=== PATIENT | male | born 1980 | race Caucasian/White ===

== ENCOUNTER 2020-10-29 08:30 | Outpatient (REF) | payer OTHER, SELFPAY ==
[2020-10-29 09:21] LABS: MANUAL DIFF FLAG NO
[2020-10-29 09:29] LABS: Basophils Percent Auto 0.7 % (0-2); Eosinophils Absolute Auto 0.5 X10*3/uL (0.0-0.4); Eosinophils Percent Auto 9.8 % (0-4); Hematocrit 39.1 % (42-52); Hemoglobin 12.9 g/dl (14.0-18.0); Imm Gran Abs Auto 0.01 X10*3/uL (0.00-0.03); Imm Gran Pct Auto 0.2 % (0.0-0.4); Lymphocytes Absolute Auto 1.1 X10*3/uL (1.2-4.9); Lymphocytes Percent Auto 19.4 % (20-40); Mean Corpuscular Hemoglobin 29.9 pg (27.0-33.0); Mean Corpuscular Volume 90.7 fL (80-98); Mean Platelet Volume 10.9 fL (9.4-12.4); Monocytes Absolute Auto 0.6 X10*3/uL (0.1-1.2); Monocytes Percent Auto 11.1 % (2-11); Neutrophils Absolute Auto 3.3 X10*3/uL (2.0-8.3); Neutrophils Percent Auto 58.8 % (45-73); Platelet Count 238 X10*3/uL (160-400); Red Blood Count 4.31 X10*6/uL (4.60-5.80); Red Cell Distribution Width 13.2 % (11.0-16.0); White Blood Count 5.5 X10*3/uL (4.8-10.8)
[2020-10-29 09:49] LABS: Alanine Aminotransferase 19 U/L (0-40); Albumin Level 4.5 g/dL (3.5-5.0); Alkaline Phosphatase 55 U/L (39-117); Anion Gap 13 (12-20); Aspartate Amino Transferase 18 U/L (5-37); Bilirubin Total 0.7 mg/dL (0.0-1.0); Blood Urea Nitrogen 17 mg/dL (9-16); Carbon Dioxide 30 mmol/L (22-29); Chloride 102 mmol/L (96-108); Cholesterol 202 mg/dL; Estimated Glomerular Filt Rate > 60; Glucose Random 110 mg/dL (60-115); HDL Cholesterol 66 mg/dL; LDL Cholesterol Calculated 118 mg/dl; Potassium 4.9 mmol/L (3.3-5.1); Sodium 140 mmol/L (135-145); Total Protein 7.1 g/dL (6.5-8.0); Triglycerides 93 mg/dL
== END 2020-10-29 08:31 | disposition home or self-care (01) ==
LOC: HO.LAB 08:30
PROVIDERS: PCP Internal Medicine Medical Oncology; Visit Provider Internal Medicine Medical Oncology
DX: Z00.00 Encounter for general adult medical examination without abnormal findings (principal); E78.5 Hyperlipidemia, unspecified
CPT/HCPCS: 36415; 80053; 80061; 85025

== ENCOUNTER 2022-08-11 10:41 | Outpatient (REF) | payer OTHER, SELFPAY ==
[2022-08-11 13:28] LABS: MANUAL DIFF FLAG NO
[2022-08-11 13:33] LABS: Basophils Percent Auto 0.6 % (0-2); Eosinophils Absolute Auto 0.2 X10*3/uL (0.0-0.4); Eosinophils Percent Auto 3.7 % (0-4); Hematocrit 41.8 % (42.0-52.0); Hemoglobin 13.7 g/dl (14.0-18.0); Imm Gran Abs Auto 0.02 X10*3/uL (0.00-0.03); Imm Gran Pct Auto 0.4 % (0.0-0.4); Lymphocytes Absolute Auto 1.2 X10*3/uL (1.2-4.9); Lymphocytes Percent Auto 23.9 % (20-40); Mean Corpuscular HGB Conc 32.8 g/dl (31.0-36.0); Mean Corpuscular Hemoglobin 29.6 pg (27.0-33.0); Mean Corpuscular Volume 90.3 fL (80.0-98.0); Mean Platelet Volume 11.1 fL (9.4-12.4); Monocytes Absolute Auto 0.7 X10*3/uL (0.1-1.2); Monocytes Percent Auto 13.3 % (2-11); Neutrophils Absolute Auto 2.9 x10*3/uL (2.0-8.3); Neutrophils Percent Auto 58.1 % (45-73); Platelet Count 265 X10*3/uL (160-400); Red Blood Count 4.63 X10*6/uL (4.60-5.80); Red Cell Distribution Width 13.1 % (11.0-16.0); White Blood Count 4.9 X10*3/uL (4.8-10.8)
[2022-08-11 13:53] LABS: Alanine Aminotransferase 22 U/L (0-40); Albumin Level 4.2 g/dL (3.5-5.0); Alkaline Phosphatase 39 U/L (39-117); Anion Gap 11 (12-20); Aspartate Amino Transferase 20 U/L (5-37); Bilirubin Total 0.8 mg/dL (0.0-1.0); Blood Urea Nitrogen 17 mg/dL (9-16); Carbon Dioxide 30 mmol/L (22-29); Chloride 102 mmol/L (96-108); Cholesterol 169 mg/dL; Estimated Glomerular Filt Rate > 60; Glucose Fasting 92 mg/dL (60-99); HDL Cholesterol 50 mg/dL; LDL Cholesterol Calculated 106 mg/dl; Potassium 4.6 mmol/L (3.3-5.1); Sodium 138 mmol/L (135-145); Total Protein 6.7 g/dL (6.5-8.0); Triglycerides 68 mg/dL
[2022-08-11 14:10] LABS: Prostate Specific Antigen 0.51 ng/mL (<0.05-4.0)
== END 2022-08-11 10:42 | disposition home or self-care (01) ==
LOC: HO.10HDL 10:41
PROVIDERS: Visit Provider Internal Medicine Medical Oncology
DX: Z00.00 Encounter for general adult medical examination without abnormal findings (principal); E78.5 Hyperlipidemia, unspecified; E66.3 Overweight; R35.1 Nocturia; Z12.5 Encounter for screening for malignant neoplasm of prostate
CPT/HCPCS: 36415; 80053; 80061; 84153; 85025

== ENCOUNTER 2023-12-18 07:53 | Outpatient (REF) | payer OTHER, SELFPAY ==
[2023-12-18 10:56] LABS: MANUAL DIFF FLAG NO
[2023-12-18 11:12] LABS: Basophils Percent Auto 0.8 % (0-2); Eosinophils Absolute Auto 0.2 X10*3/uL (0.0-0.4); Eosinophils Percent Auto 4.5 % (0-4); Hematocrit 44.9 % (42.0-52.0); Hemoglobin 15.5 g/dl (14.0-18.0); Imm Gran Abs Auto 0.01 X10*3/uL (0.00-0.03); Imm Gran Pct Auto 0.2 % (0.0-0.4); Lymphocytes Absolute Auto 1.1 X10*3/uL (1.2-4.9); Lymphocytes Percent Auto 22.5 % (20-40); Mean Corpuscular HGB Conc 34.5 g/dl (31.0-36.0); Mean Corpuscular Hemoglobin 30.7 pg (27.0-33.0); Mean Corpuscular Volume 88.9 fL (80.0-98.0); Monocytes Absolute Auto 0.8 X10*3/uL (0.1-1.2); Monocytes Percent Auto 15.6 % (2-11); Neutrophils Absolute Auto 2.8 x10*3/uL (2.0-8.3); Neutrophils Percent Auto 56.4 % (45-73); Platelet Count 252 X10*3/uL (160-400); Red Blood Count 5.05 X10*6/uL (4.60-5.80); Red Cell Distribution Width 12.4 % (11.0-16.0); White Blood Count 4.9 X10*3/uL (4.8-10.8)
[2023-12-18 11:24] LABS: Alanine Aminotransferase 21 U/L (0-40); Albumin Level 4.6 g/dL (3.5-5.0); Alkaline Phosphatase 34 U/L (39-117); Anion Gap 14 (12-20); Aspartate Amino Transferase 22 U/L (5-37); Bilirubin Total 0.9 mg/dL (0.0-1.0); Blood Urea Nitrogen 15 mg/dL (9-16); Calcium 9.4 mg/dL (8.4-10.2); Carbon Dioxide 29 mmol/L (22-29); Chloride 100 mmol/L (96-108); Cholesterol 188 mg/dL (<200); Estimated Glomerular Filt Rate > 60; Glucose Fasting 90 mg/dL (60-99); HDL Cholesterol 64 mg/dL (>40); LDL Cholesterol Calculated 111 mg/dL (<100); Potassium 4.5 mmol/L (3.3-5.1); Sodium 138 mmol/L (135-145); Total Protein 7.5 g/dL (6.5-8.0); Triglycerides 66 mg/dL (<150)
[2023-12-18 11:49] LABS: Prostate Specific Antigen 0.58 ng/mL (<0.05-4.0)
== END 2023-12-18 07:54 | disposition home or self-care (01) ==
LOC: HO.10HDL 07:53
PROVIDERS: Visit Provider Internal Medicine Medical Oncology
DX: Z00.00 Encounter for general adult medical examination without abnormal findings (principal); E78.5 Hyperlipidemia, unspecified; N40.0 Benign prostatic hyperplasia without lower urinary tract symptoms; Z12.5 Encounter for screening for malignant neoplasm of prostate
CPT/HCPCS: 36415; 80053; 80061; 84153; 85025

== ENCOUNTER 2024-12-22 07:30 | Outpatient (REF) | payer BC, SELFPAY ==
--- OUTSIDE RECORDS SUMMARY | 2024-12-22 07:32 | XMS_ITS ---
Author Organization [facility] Address [address] [facility] [address] [place] [phone] Care Team Providers Care Soap Boiler Name Role Phone Cornelio KIRBY, Bernabe Primary Care Provider Unavailab alondra Roldan Jr, Lukas Ricketts [phone] REASON FOR VISIT COLONOSCOPY Encounters Encounter Location Date Provider Diagnosis [facility] [address] [facility] [address] [place] [phone] 11/17/2024 Lukas Roldan Jr Plan Of Treatment Next Appt Details Provider Name:Lukas valderrama Jr, 02/27/2025 01:15:00 PM, [address] [facility], [address], [place], [address], Progress Notes * MARIELA VILLANUEVAOB:1980 ( 44 yo M)Acc No.[id number]:11/17/2024 Progress Notes Patient:?CHRISTEN VILLANUEVA Provider:?Lukas Roldan MD :1980???Age:44 Y???Sex:Male Dmitry e:11/17/2024 Address:[address] [place], [place] [id number] Pcp:Bernabe Grimes MD Subjective: * Chief Complaints: * ???1. COLONOSCOPY. * Medical History:? Objective: * Vitals:? Assessment: Plan: * Treatment: * * The named appointment provid er may or may not be the originator of this progress note, and it is not deemed complete until electronically signed by the appointment provider. Sign off status: Pending * Provider:?Lukas Roldan MD Date:?0 11/17/2024 Generated for Printi ng/Faxing/eTransmitting on:?12/22/2024 07:32 AM EDT
--- OUTSIDE RECORDS SUMMARY | 2024-12-22 07:32 | XMS_ITS ---
Author Organization Bernabe Grimes III, MD Address [address] [place] [address] [place] [address] Care Team Providers Care String Studies Director Name Role Phone Bernabe Grimes Primary Care Provider Allergies Allergen (clinical drug ingredient) Drug/Non Drug Allergy documented on EMR Reaction Allergy Type Onset Date Status Penicillin Unknown Drug Allergy Active Reason For Referral Reason Evaluate and Treat Screening Colonoscopy Diagnosis 1 Screen for colon can cer (Z12.11) Referral Organization Bernabe Grimes III, MD Referring Provider First Name Bernabe Referring Provider Last Name Cornelio Referring Provider Speciality Internal M edicine Referred Provider Lukas Roldan Referred Provider Specialty Gastroentero logy General Notes Elvira Sierra 07/11/2024 11:57:38 AM > Referral and Progress note faxed.Renetta Suzanne CMA 10/20/2024 04:04:58 PM > called Dr Roldan office pt is over due for screening colonoscopy they will call patient to set up apptRenetta Suzanne PLACEMENT ASSISTANT 10/27/2024 04:19:28 PM > Dr Roldan office called they are seeing pt on 11/17/2024 and need an referral which Elvira has done today Referral Priority Routine Referral Appointment Date 11/17/2024 REASON FOR VISIT Recent emergency room visit for heartburn, Hyperlipidemia, Allergic rhinitis, Benign prostatic hypertrophy Medications Medication SIG (Take, Route, Frequency, Duration) Notes Start Date End Date Status Omeprazole 40 MG 1 capsule Orally Onc e a day for 30 days 07/04/2024 Active Famotidine 20 MG 1 tablet as needed O rally Once a day Active Omeprazole 20 MG 1 capsule 1/2 to 1 h our before morning meal Orally Once a day Active Pantoprazole Sodium 40 MG 1 tablet Orall y Once a day for 30 days 07/04/2024 Active Social History Tobacco Use: Social History Observation Description Date Details (start date - stop date) Former Smoker NA - NA Sex Assigned At : Social History Observation Description Sex Assigned At Male Tobacco Use/Smoking Question Answer Notes Patient is a former smoker How long has it been since you last smoked? > 10 years Additional Findings: Tobacco Non-User Ex-cigaret te smoker Problems Problem Type SNOMED Code ICD Code Onset Dates Problem Status W/U Status Risk Notes Problem 807722019 GERD without esophagitis (K21.9) Active confirmed I have given him a prescription for pantoprazole. He reports the omeprazole is not working. Vital Signs Temperature 97.7 degrees Fahrenheit 07/04/20 24 Blood pressure systolic 140 mm Hg 07/04/20 24 Blood pressure diastolic 85 mm Hg 024 Heart Rate 60 /min 07/04/2024 Height 69 in 07/04/2024 Weight 192 lbs 07/04/2024 BMI 28.35 kg/m2 07/04/2024 Encounters Encounter Location Date Provider Diagnosis Bernabe Grimes III, MD [address] [place] [address] [place] [address] 07/04/2024 Bernabe Grimes GERD without esophag itis K21.9 ; Hyperlipidemia, unspecified hyperlipidemia type E78.5 ; Former smoker Z87.891 ; Overweight E66.3 and Social phobia F40.10 Assessments Encounter Date Diagnosis (ICD Code) Assessment Notes Treat ment Notes Treatment Clinical Notes 07/04/2024 GERD without esophagitis (ICD-10 - K21.9) He was recently seen in a local emergency room for chest pain which was diagnosed as GERD. He was on 20 mg of omeprazole daily and was placed on 40. This has not helped. I have prescribed him to result 40 mg once a day. He will also use a liquid antacid. 07/04/2024 Hyperlipidemia, unspecified hyperlipidemia type (ICD-10 - E78.5) Comprehensive blood work with a fasting lipid profile has been ordered. 07/04/2024 Former smoker (ICD-10 - Z87.891) We have discussed a plan to prevent relapse in times of stress and illness. He is entirely motivated not to smoke. 07/04/2024 Overweight (ICD-10 - E66.3) His body mass index is 29. However, the excess weight is due to highly developed muscles. His body that is quite low. The body mass index is a result of body building and does not represent a risk factor for cardiovascular disease. 07/04/2024 Social phobia (ICD-10 - F40.10) This has been a minor problem for him lately. Plan Of Treatment Medication Medication Name Sig Start Date Stop Date Notes Omeprazole 40 MG 1 capsule Orally Onc e a day for 30 days 07/04/2024 Famotidine 20 MG 1 tablet as needed O rally Once a day Omeprazole 20 MG 1 capsule 1/2 to 1 h our before morning meal Orally Once a day Pantoprazole Sodium 40 MG 1 tablet Orall y Once a day for 30 days 07/04/2024 Referrals Referral Date Details 07/04/2024 07/04/2024, Evaluate and Treat Screening Colonoscopy, Lukas Roldan Next Appt Details Follow Up: 2 Months, , Reason: OV, Follow-up on the patient's condition and colonoscopy Provider Name:Bernabe Grimes, 12/20/2025 03:30:00 PM, [address] [place] [address] [address] [place] [address], [phone], Progress Notes * dAiel BROOKEDarianOB:1980 ( 43 yo M)Acc No.[id number]:07/04/2024 Progress Notes Patient:?Michael BROOKE Provider:?Bernabe Grimes MD :1980???Age:43 Y???Sex:Male Dmitry e:07/04/2024 Address:[address] [place], [place] [phone] Subjective: * Chief Complaints: * ???Recent emergency room vis it for heartburnHyperlipidemiaAllergic rhinitisBenign prostatic hypertrophy * HPI: ???COVID-19 Screening:?Questions?Have you experienced fever, chills, cough, sore throat, shortness of breath, difficulty breathing, muscle aches, loss of taste or smell??No ?Have you been exposed to the virus within the last 10 days??No ?Have you travelled internationally in the last 10 days??No ?Have you been exposed to COVID-19 in the past??No ???:? The patient, a 43-year-old male, presented with a history of chest pain and tightness. The symptoms began around June 29 and were not constant but occurred after eating and when the patient was sitting. The pain was described as tight and was severe enough to cause the patient to visit the emergency room. The location of the pain was in the chest. The patient reported that the pain did not occur if he went for a walk after eating. The patient also reported weight loss due to fear of eating. The patient was previously diagnosed with GERD, acid reflux, or esophageal hernia at the emergency room. The patient also reported numbness in his fingers. * ROS:?General/Constitutional:?Admits?pain,?Heartburn.?Chills?denies.?Fatigue?admits.?Fever?denies.?Admit s?Weight loss.?ENT:?Decreased hearing?denies.?Respiratory:?Cough?denies.?Cardiovascular:?Chest pain with exertion?denies.?Dyspnea on exertion?denies.?Shortness of breath?denies.?Gastrointestinal:?Constipation?occasional.?Decreased appetite?denies.?Diarrhea?denies.?Heartburn?denies.?Nausea?denies.?Rectal bleeding?denies.?Vomiting?denies.?Hematology:?bruising?denies.?petechiae?denies.?Swollen glands?none have been noted.?Genitourinary:?Frequent urination?once a night.?Musculoskeletal:?Muscle aches?denies.?Painful joints?denies.?Sciatica?denies.?Weakness?denies.?Skin:?Itching?denies.?Rash?denies.?Skin lesion(s)?denies.?Neurologic:?Difficulty speaking?denies.?Dizziness?denies.?Headache?denies.?Low back pain?denies.?Psychiatric:?Depressed mood?denies.? * Medical History:? * Surgical History:?dental ext ractions, 4 wisdom teeth removed No history * Hospitalization/Major Diagno stic Procedure:?No history * Family History:?Father: dece ased 73 yrs, Bladder cancer, hypertension, coronary artery disease, diagnosed with Cancer, Hyperlipidemia.?Mother: alive 64 yrs, Arthritis, total knee replacement.?1 sister(s) - healthy. 1 son(s) , 1 daughter(s) . .? His father from metastatic bladder cancer. His sister, Claritza, is healthy and well with scoliosis. His 2 children are healthy and well. He is not aware of any history of hereditary cancer, breast cancer or uterine cancer. Daughter Dx. AIP. * Social History:?Tobacco Use:?Tobacco Use/Smoking?Patient is a?former smoker ?How long has it been since you last smoked??> 10 years ?Additional Findings: Tobacco Non-User?Ex-cigarette smoker ???He has been to Danii for 5 years. They have a son and a daughter who are healthy. He was born and [place], [place]. 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 He has some exposures to flannel 1. We'll and chemicals. * Medications:?TakingFamotidin e 20 MG Tablet 1 tablet as needed Orally Once a day Omeprazole 20 MG Capsule Delayed Release 1 capsule 1/2 to 1 hour before morning meal Orally Once a day Medication List reviewed and reconciled with the patientTaking Famotidine 20 MG Tablet 1 tablet as needed Orally Once a day Taking Omeprazole 20 MG Capsule Delayed Release 1 capsule 1/2 to 1 hour before morning meal Orally Once a day Medication List reviewed and reconciled with the patient * Allergies:?Penicillinno[Jameel rgies Verified] Objective: * Vitals:?Ht: 69, Wt: 192, BMI :28.35, BP: 140/85, HR: 60, Temp: 97.7, Wt-k.09. * Examination: ???General Examination: ?GENERAL APPEARANCE:?pleasant, well nourished, well developed, in no acute distress, calm and relaxed, overweight, man.?HEAD:?atraumatic, normocephalic.?EYES:?eomi, perrla, anicteric, conjugate.?EARS:?normal.?NOSE:?septum intact.?ORAL CAVITY:?normal, unremarkable.?NECK/THYROID:?no jugular venous distention, no carotid bruit, thyroid normal.?LYMPH NODES:?no enlarged lymph nodes,spleen normal.?SKIN:?no suspicious lesions, anicteric.?HEART:?no clicks, gallops, murmurs, or rubs, regular rhythm, S1, S2 normal, no s3, or vascular bruits.?LUNGS:?clear to auscultation .?BREASTS:??no masses palpable bilaterally.?ABDOMEN:?bowel sounds normal, no ascites, no organomegaly, no mass.?RECTAL EXAM:?not examined.?MUSCULOSKELETAL:?extremities unremarkable, no clubbing, cyanosis or edema.?PERIPHERAL PULSES:?normal.?NEUROLOGIC:?alert and oriented, cranial nerves 2-12 grossly intact, deep tendon reflexes 2+ symmetrical, motor strength normal upper and lower extremities, sensory exam intact.?PSYCH:?alert, oriented.? Assessment: * Assessment: 1.?GERD without esophagitis - K21.9 (Primary)???Notes :He was recently seen in a local emergency room for chest pain which was diagnosed as GERD.? He was on 20 mg of omeprazole daily and was placed on 40.? This has not helped.? I have prescribed him to result 40 mg once a day.? He will also use a liquid antacid.???2.?Hyperlipidemia, unspecified hyperlipidemia type - E78.5???Notes :Comprehensive blood work with a fasting lipid profile has been ordered.???3.?Former smoker - Z87.891???Notes :We have discussed a plan to prevent relapse in times of stress and illness. He is entirely motivated not to smoke.???4.?Overweight - E66.3???Notes :His body mass index is 29. However, the excess weight is due to highly developed muscles. His body that is quite low. The body mass index is a result of body building and does not represent a risk factor for cardiovascular disease.???5.?Social phobia - F40.10???Notes :This has been a minor problem for him lately.??? Plan: * Treatment: 2.?Others? Start Omeprazole Capsule Delayed Release, 40 MG, 1 capsule, Orally, Once a day, 30 days, 30 Capsule, Refills 3, Notes: received notice from pharmacy medication not covered;?Start Pantoprazole Sodium Tablet Delayed Release, 40 MG, 1 tablet, Orally, Once a day, 30 days, 30 Tablet, Refills 5, Notes: received notice from pharmacy medication not covered.? Referral To:Lukas Roldan??Gastroenterology ?Reason:Evaluate and Treat Screening Colonoscopy * Procedure Codes:? * Preventive Medicine:? ??Counseling:?Care goal follow-up plan:?Counseling for abnormal BMI given?Yes ?Above Normal BMI Follow-up?Dietary management education, guidance, and counseling, Dietary needs education, Exercise promotion: strength training, Exercise promotion: stretching, Feeding regime, Giving encouragement to exercise, Lifestyle education regarding diet, Nutrition / feeding management, Nutrition therapy, Prescribed activity/exercise education, Prescribed diet education, Prescribed dietary intake, Special diet education, Weight monitoring , Intervention, Order not done: Medical or Other reason not done ?Smoking/Tobacco Use?Patient counseled on the dangers of tobacco use and urged to quit.?07/04/2024 * Follow Up:?2 Months, Februar y (Reason: OV, Follow-up on the patient's condition and colonoscopy) * Images: * Sign off status: Completed true * Provider:?Bernabe Grimes MD Date:?09/2023 Generated for Printi ng/Radha/eTransmitting on:?12/22/2024 07:32 AM EDT History and Physical Notes * HPI (History of Present Illness) Category Sub-Category Detail Notes COVID-19 Screening Questions Have you had any new onset fever, chills, cough, congestion, sore throat, shortness of breath, muscle aches?: No Have you been exposed to the virus withi n the last 10 days?: No Have you travelled internationally in e last 10 days?: No Have you been exposed to COVID-19 in the past?: No Examination Category Sub-Category Detail Notes General Examination GENERAL APPEARANCE: pleasant , well nourished, well developed, in no acute distress, calm and relaxed, overweight, man HEAD: atraumatic, normocep halic EYES: eomi, perrla, anicte cy, conjugate EARS: normal NOSE: septum intact NECK/THYROID: no jugular venous di stention, no carotid bruit, thyroid normal HEART: no clicks, gallops, murmurs, or rubs, regular rhythm, S1, S2 normal, no s3, or vascular bruits LUNGS: clear to auscultatio n ABDOMEN: bowel sounds normal, no ascites, no organomegaly, no mass NEUROLOGIC: alert and oriented, cranial nerves 2-12 grossly intact, deep tendon reflexes 2+ symmetrical, motor strength normal upper and lower extremities, sensory exam intact SKIN: no suspicious lesion s, anicteric PERIPHERAL PULSES: normal BREASTS: no masses palpable b ilaterally MUSCULOSKELETAL: extremities unremark able, no clubbing, cyanosis or edema LYMPH NODES: no enlarged lymph no ayaan,spleen normal RECTAL EXAM: not examined PSYCH: alert, oriented ORAL CAVITY: normal, unremarkable Consultation Request Notes Referral Date Referring Provider Referred Provider Not es 07/04/2024 Bernabe Grimes Bernard Evaluate and Treat Screening Colonoscopy
--- OUTSIDE RECORDS SUMMARY | 2024-12-22 07:33 | XMS_ITS | Patient Health Record ---
Author Organization Bernabe Grimes III, MD Address [address] [place] [address] [place] [address] Care Team Providers Care Windows Systems Admin Name Role Phone Bernabe Grimes Primary Care [...] > Referral and Progress note faxed.Renetta Suzanne CLOTH BLEACHING RANGE TENDER 10/20/2024 04:04:58 PM > called Dr Roldan office pt is over due for screening colonoscopy they will call patient to set up apptRenetta Suzanne [facility] 10/27/2024 04:19:28 PM > Dr Roldan office called they are seeing pt on 11/17/2024 and need an referral which Elvira has done today Referral Priority Routine Referral Appointment Date 11/17/2024 Medications Medication SIG (Take, Route, Frequency, Duration) Notes Start Date End Date Status Famotidine 20 MG 1 tablet as needed O rally Once a day Active Omeprazole 40 MG 1 capsule Orally Onc e a day 07/04/2024 Active Pantoprazole Sodium 40 MG 1 tablet Orally Once a day 07/04/2024 Active Pantoprazole Sodium 40 MG 1 tablet Orall y Once a day for 30 days 12/19/2024 Active Social History Tobacco Use: Social History Observation Description Date Details (start date - stop date) Former Smoker NA - NA Sex Assigned At : Social History Observation Description Sex Assigned At Male Tobacco Use/Smoking Question Answer Notes Patient is a former smoker How long has it been since you last smoked? > 10 years Additional Findings: Tobacco Non-User Ex-cigaret te smoker Alcohol Screen Question Answer Notes Did you have a drink contain ing alcohol in the past year? Yes How often did you have a dri nk containing alcohol in the past year? 2 to 3 times a week (3 points) How many drinks did you have on a typical day when you were drinking in the past year? 3 or 4 drinks (1 point) How often did you have 6 or more drinks on one occasion in the past year? Never (0 point) Points 4 Interpretation Positive Problems Problem Type SNOMED Code ICD Code Onset Dates Problem Status W/U Status Risk Notes Problem 9308006 Former smoker (Z87.891) Active confirmed We have discussed a plan to prevent relapse in times of stress and illness. He is entirely motivated not to smoke. Problem 270309216 Overweight (E66.3) Active confirmed His body mass index is 29. However, the excess weight is due to highly developed muscles. His body that is quite low. The body mass index is a result of body building and does not represent a risk factor for cardiovascular disease. Problem 749294248 GERD without esophagitis (K21.9) Active confirmed I have given him a prescription for pantoprazole. He reports the omeprazole is not working. Problem Benign prostatic hyperplasia (632841063) BPH (benign prostatic hyperplasia) (N40.0) Active confirmed He arises from sleep once a night at most to urinate. He does not restrict fluid. We discussed lifestyle modification as a way of reducing nocturia. Problem 10442042 Penicillin allergy (Z88.0) Active confirmed He is aware of this and has been scrupulous the avoiding penicillins. Problem 25333181 Social phobia (F40.10) Active confirmed This has been a minor problem for him lately. Problem Hyperlipidemia, unspecified hyperlipidemia type (E78.5) Active confirmed Comprehensive blood work with a fasting lipid profile has been ordered. Problem 16164001 Allergic rhinitis, unspecified seasonality, unspecified trigger (J30.9) Active confirmed He is beginn ing to notice this symptom as we get into pollen season. He will use his usual antihistamines. I recommended Flonase. He will call me if he needs additional agents. Vital Signs Heart Rate 69 /min 12/19/2024 Temperature 97.5 degrees Fahrenheit 12/19/2024 Blood pressure diastolic 80 mm Hg 12/19/2024 Height 69 in 12/19/2024 Blood pressure systolic 120 mm Hg 12/19/2024 Weight 201 lbs 12/19/2024 BMI 29.68 kg/m2 12/19/2024 Encounters Encounter Location Date Provider Diagnosis Bernabe Grimes III, MD [address] [place] [address] [place] [address] 12/19/2024 Bernabe Grimes GERD without esophag itis K21.9 ; Former smoker Z87.891 ; Overweight E66.3 ; Social phobia F40.10 ; Allergic rhinitis, unspecified seasonality, unspecified trigger J30.9 and BPH (benign prostatic hyperplasia) N40.0 Bernabe Grimes III, MD [address] [place] [address] [place] [address] 07/04/2024 Bernabe Grimes GERD without esophag itis K21.9 ; Hyperlipidemia, unspecified hyperlipidemia type E78.5 ; Former smoker Z87.891 ; Overweight E66.3 and Social phobia F40.10 Bernabe Grimes III, MD [address] [place] [address] [place] [address] 05/10/2024 Bernabe Grimes III, MD [address] [place] [address] [place] [address] 06/28/2024 Bernabe Grimes Assessments Encounter Date Diagnosis (ICD Code) Assessment Notes Treat ment Notes Treatment Clinical Notes 12/19/2024 Former smoker (ICD-10 - Z87.891) We have discussed a plan to prevent relapse in times of stress and illness. He is entirely motivated not to smoke. 12/19/2024 GERD without esophagitis (ICD-10 - K21.9) I have given him a prescription for pantoprazole. He reports the omeprazole is not working. 07/04/2024 GERD without esophagitis (ICD-10 - K21.9) [...] a fasting lipid profile has been ordered. 12/19/2024 Overweight (ICD-10 - E66.3) His body mass index is 29. However, the excess weight is due to highly developed muscles. His body that is quite low. The body mass index is a result of body building and does not represent a risk factor for cardiovascular disease. 07/04/2024 Former smoker (ICD-10 - Z87.891) We have discussed a plan to prevent relapse in times of stress and illness. He is entirely motivated not to smoke. 12/19/2024 Social phobia (ICD-10 - F40.10) This has been a minor problem for him lately. 07/04/2024 Overweight (ICD-10 - E66.3) His body mass index is 29. However, the excess weight is due to highly developed muscles. His body that is quite low. The body mass index is a result of body building and does not represent a risk factor for cardiovascular disease. 12/19/2024 Allergic rhinitis, unspecified seasonality, unspecified trigger (ICD-10 - J30.9) He is beginning to notice this symptom as we get into pollen season. He will use his usual antihistamines. I recommended Flonase. He will call me if he needs additional agents. 07/04/2024 Social phobia (ICD-10 - F40.10) This has been a minor problem for him lately. 12/19/2024 BPH (benign prostatic hyperplasia) (ICD-10 - N40.0) He arises from sleep once a night at most to urinate. He does not restrict fluid. We discussed lifestyle modification as a way of reducing nocturia. Plan Of Treatment Pending Test Test Name Order Date PROFILE, FASTING (COMPREHENSIVE METABOLI C) 12/19/2024 PROFILE, FASTING (COMPREHENSIVE METABOLI C) 2019 PROFILE, FASTING (COMPREHENSIVE METABOLI C) 06/21/2018 LIPID PANEL 2019 LIPID PANEL 06/21/2018 PSA, TOTAL 06/21/2018 PSA, TOTAL 12/19/2024 PSA, TOTAL 2019 CBC w DIFF 2019 CBC w DIFF 06/21/2018 CBC w DIFF 12/19/2024 URINALYSIS (UA) 06/21/2018 Lipid Panel 12/19/2024 Next Appt Details Provider Name:Bernabe Grimes, 12/20/2025 03:30:00 PM, [address] [place] [address], [facility] [address], [place], [address], Insurance Providers Payer Name Payer Address Payer Phone Subscriber Number Group Number Insured Name Patient Relationship to Insured Coverage Start Date Coverage End Date [facility] [address] [place], [place] [id number] Michael Brooke Self - patient is the insured Medical (General) History Medical History History ICD Code Social phobia F40.10 Allergic rhinitis, unspecified seasonali ty, unspecified trigger J30.9 overweight, BMI 29 Allergic to penicillin, rash history of dental extractions former smoker 2014 Suboxone recipient GERD Surgical History Surgery Date(Month/Year) No history dental extractions, 4 wisdom teeth remov ed Hospitalization History Reason Date(Month/Year) No history
--- OUTSIDE RECORDS SUMMARY | 2024-12-22 07:33 | XMS_ITS ---
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 Phone Bernabe Grimes Primary Care Provider Allergies Allergen (clinical drug ingredient) Drug/Non Drug Allergy documented on EMR Reaction Allergy Type Onset Date Status Penicillin Unknown Drug Allergy Active REASON FOR VISIT annual exam Medications Medication SIG (Take, Route, Frequency, Duration) [...] Additional Findings: Tobacco Non-User Ex-cigaret te smoker Vital Signs Temperature 97.5 degrees Fahrenheit 12/20/19 25 Blood pressure systolic 120 mm Hg 12/20/19 25 Blood pressure diastolic 80 mm Hg 025 Heart Rate 69 /min 12/19/2024 Height 69 in 12/19/2024 Weight 201 lbs 12/19/2024 BMI 29.68 kg/m2 12/19/2024 Encounters Encounter Location Date Provider Diagnosis Bernabe Grimes III, MD [address] [place] [address] [place] [address] 12/19/2024 Bernabe Grimes GERD without esophagitis K21.9 ; Former smoker Z87.891 ; Overweight E66.3 ; Social phobia F40.10 ; Allergic rhinitis, unspecified seasonality, unspecified trigger J30.9 and BPH (benign prostatic hyperplasia) N40.0 Assessments Encounter Date Diagnosis (ICD Code) Assessment Notes Treatment Notes Treatment Clinical Notes 12/19/2024 GERD without esophagitis (ICD-10 - K21.9) I have given him a prescription for pantoprazole. He reports the omeprazole is not working. 12/19/2024 Former smoker (ICD-10 - Z87.891) We have discussed a plan to prevent relapse in times of stress and illness. He is entirely motivated not to smoke. 12/19/2024 Overweight (ICD-10 - E66.3) His body mass index is 29. However, the excess weight is due to highly developed muscles. His body that is quite low. The body mass index is a result of body building and does not represent a risk factor for cardiovascular disease. 12/19/2024 Social phobia (ICD-10 - F40.10) This has been a minor problem for him lately. 12/19/2024 Allergic rhinitis, unspecified seasonality, unspecified trigger (ICD-10 - J30.9) He is beginning to notice this symptom as we get into pollen season. He will use his usual antihistamines. I recommended Flonase. He will call me if he needs additional agents. 12/19/2024 BPH (benign prostatic hyperplasia) (ICD-10 - N40.0) He arises from sleep once a night at most to urinate. He does not restrict fluid. We discussed lifestyle modification as a way of reducing nocturia. Plan Of Treatment Medication Medication Name Sig Start Date Stop Date Notes Famotidine 20 MG 1 tablet as needed O rally Once a day Omeprazole 40 MG 1 capsule Orally Once a day 07/04/2024 Pantoprazole Sodium 40 MG 1 tablet Orally Once a day 07/04 Pantoprazole Sodium 40 MG 1 tablet Orall y Once a day for 30 days 12/19/2024 Pending Test Test Name Order Date PROFILE, FASTING (COMPREHENSIVE METABOLI C) 12/19/2024 PSA, TOTAL 12/19/2024 CBC w DIFF 12/19/2024 Lipid Panel 12/19/2024 Next Appt Details Follow Up: 1 Year, Reason: A nnual Exam Provider Name:Bernabe Grimes, 12/20/2025 03:30:00 PM, [address] [place] [address] [address], [place], [address], Progress Notes * Wilber BROOKEOB:1980 ( 44 yo M)Acc No.[id number]:12/19/2024 Progress Notes Patient:?Michael BROOKE Provider:?Bernabe Grimes MD :1980???Age:44 Y???Sex:Male Dmitry e:12/19/2024 Address:[address] [place] [id number] Subjective: * Chief Complaints: * ???Annual exam * HPI: ???Depression Screening:?He returns to the office at the age of 44 for his annual physical examination.? He is being followed for hyperlipidemia, allergic rhinitis, GERD and benign prostatic hypertrophy.? He reports that he has only mild symptoms during the current pollen season.? He feels healthy and well.? He denies any chest pain, shortness of breath, palpitations, nausea, vomiting, diarrhea or bleeding.? He arises from sleep once a night to urinate.One concern is that the omeprazole is not preventing his reflux symptoms.? I have given him a prescription for pantoprazole. ?PHQ-9?Little interest or pleasure in doing things?Not at all ?Feeling down, depressed, or hopeless?Not at all ?Trouble falling or staying asleep, or sleeping too much?Not at all ?Feeling tired or having little energy?Not at all ?Poor appetite or overeating?Not at all ?Feeling bad about yourself or that you are a failure, or have let yourself or your family down?Not at all ?Trouble concentrating on things, such as reading the newspaper or watching television?Not at all ?Moving or speaking so slowly that other people could have noticed; or the opposite, being so fidgety or restless that you have been moving around a lot more than usual?Not at all ?Thoughts that you would be better off or of hurting yourself in some way?Not at all ?Total Score?0 ???COVID-19 Screening:?Questions?Have you had any new onset fever, chills, cough, congestion, sore throat, shortness of breath, muscle aches??No ???SDOH Questions:?SDOH Questions?In the past year have you or any family members you live with been unable to get any of the following when it was really needed? Check all that apply:?Decline to answer * ROS:?General/Constitutional:?pain?only normal aches and pains.?Chills?denies.?Fatigue?admits.?Fever?denies.?ENT:?Decreased hearing?denies.?Respiratory:?Cough?denies.?Cardiovascular:?Chest pain with exertion?denies.?Dyspnea on exertion?denies.?Shortness of breath?denies.?Gastrointestinal:?Constipation?occasional.?Decreased appetite?denies.?Diarrhea?denies.?Heartburn?occasional.?Nausea?denies.?Rectal bleeding?denies.?Vomiting?denies.?Hematology:?bruising?denies.?petechiae?denies.?Swollen glands?none have been noted.?Genitourinary:?Frequent urination?once a night.?Musculoskeletal:?Muscle aches?denies.?Painful joints?denies.?Sciatica?denies.?Weakness?denies.?Skin:?Itching?denies.?Rash?denies.?Skin lesion(s)?denies.?Neurologic:?Difficulty speaking?denies.?Dizziness?denies.?Headache?denies.?Low back pain?denies.?Psychiatric:?Depressed mood?denies.? * Medical History:? * Surgical History:?dental ext ractions, 4 wisdom teeth removed No history * Hospitalization/Major Diagno stic Procedure:?No history * Family History:?Father: dece ased 73 yrs, Bladder cancer, hypertension, coronary artery disease, diagnosed with Hyperlipidemia, Cancer.?Mother: alive 64 yrs, Arthritis, total knee replacement.?1 [...] who are healthy. He was born and [place], [place]. 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 He has some exposures to flannel 1. We'll and chemicals. * Medications:?TakingFamotidin e 20 MG Tablet 1 tablet as needed Orally Once a day Omeprazole 40 MG Capsule Delayed Release 1 capsule Orally Once a day , Notes: received notice from pharmacy medication not coveredMedication List reviewed and reconciled with the patientTaking Famotidine 20 MG Tablet 1 tablet as needed Orally Once a day Taking Omeprazole 40 MG Capsule Delayed Release 1 capsule Orally Once a day , Notes: received notice from pharmacy medication not coveredMedication List reviewed and reconciled with the patient * Allergies:?Penicillinno[Jameel rgies Verified] Objective: * Vitals:?Ht: 69, Wt: 201, BMI :29.68, BP: 120/80, HR: 69, Temp: 97.5, Wt-k.17. * Examination: ???General Examination: ?GENERAL APPEARANCE:?pleasant, well nourished, well developed, in no acute distress, calm and relaxed, overweight.?HEAD:?atraumatic, normocephalic.?EYES:?eomi, perrla, anicteric, conjugate.?EARS:?normal.?NOSE:?septum intact.?ORAL CAVITY:?normal, unremarkable.?NECK/THYROID:?no jugular venous distention, no carotid bruit, thyroid normal.?LYMPH NODES:?no enlarged lymph nodes,spleen normal.?SKIN:?no suspicious lesions, anicteric.?HEART:?no clicks, gallops, murmurs, or rubs, regular rhythm, S1, S2 normal, no s3, or vascular bruits.?LUNGS:?clear to auscultation .?BREASTS:??no masses palpable bilaterally.?ABDOMEN:?bowel sounds normal, no ascites, no organomegaly, no mass, overweight.?RECTAL EXAM:?not examined, Colonoscopy in the near future.?MUSCULOSKELETAL:?extremities unremarkable, no clubbing, cyanosis or edema.?PERIPHERAL PULSES:?normal.?NEUROLOGIC:?alert and oriented, cranial nerves 2-12 grossly intact, deep tendon reflexes 2+ symmetrical, motor strength normal upper and lower extremities, sensory exam intact.?PSYCH:?alert, oriented.? Assessment: * Assessment: 1.?GERD without esophagitis - K21.9 (Primary)???Notes :I have given him a prescription for pantoprazole.? He reports the omeprazole is not working.???2.?Former smoker - Z87.891???Notes :We have discussed a plan to prevent relapse in times of stress and illness. He is entirely motivated not to smoke.???3.?Overweight - E66.3???Notes :His body mass index is 29. However, the excess weight is due to highly developed muscles. His body that is quite low. The body mass index is a result of body building and does not represent a risk factor for cardiovascular disease.???4.?Social phobia - F40.10???Notes :This has been a minor problem for him lately.???5.?Allergic rhinitis, unspecified seasonality, unspecified trigger - J30.9???Notes :He is beginning to notice this symptom as we get into pollen season. He will use his usual antihistamines. I recommended Flonase. He will call me if he needs additional agents.???6.?BPH (benign prostatic hyperplasia) - N40.0???Notes :He arises from sleep once a night at most to urinate. He does not restrict fluid. We discussed lifestyle modification as a way of reducing nocturia.??? Plan: * Treatment: 2.?Overweight?LAB: PROFILE, FASTING (COMPREHENSIVE METABOLIC) ?LAB: PSA, TOTAL ?LAB: CBC w DIFF ?LAB: Lipid Panel 3.?BPH (benign prostatic hyp erplasia)?LAB: PROFILE, FASTING (COMPREHENSIVE METABOLIC) ?LAB: PSA, TOTAL ?LAB: CBC w DIFF ?LAB: Lipid Panel 4.?Others? Continue Omeprazole Capsule Delayed Release, 40 MG, 1 capsule, Orally, Once a day, Notes: received notice from pharmacy medication not covered;?Continue Pantoprazole Sodium Tablet Delayed Release, 40 MG, 1 tablet, Orally, Once a day, Notes: received notice from pharmacy medication not covered.?? * Procedure Codes:? * Preventive Medicine:? ??Counseling:?Care goal follow-up plan:?Counseling for abnormal BMI given?Yes ?Above Normal BMI Follow-up?Dietary management education, guidance, and counseling ?Smoking/Tobacco Use?Patient counseled on the dangers of tobacco use and urged to quit.?12/19/2024 * Follow Up:?1 Year (Reason: A nnual Exam) * Images: * Sign off status: Completed true * Provider:?Bernabe Grimes MD Date:?12/01 Generated for Lucero arrington/Radha/eTransmitting on:?12/22/2024 07:33 AM EDT History and Physical Notes * HPI (History of Present Illness) Category Sub-Category Detail Notes Depression Screening PHQ-9 Little inte rest or pleasure in doing things: Not at all Feeling down, depressed, or hopeless: No t at all Trouble falling or staying asleep, or sl eeping too much: Not at all Feeling tired or having little energy: N ot at all Poor appetite or overeating: Not at all Feeling bad about yourself o r that you are a failure, or have let yourself or your family down: Not at all Trouble concentrating on thi ngs, such as reading the newspaper or watching television: Not at all Moving or speaking so slowly that other people could have noticed; or the opposite, being so fidgety or restless that you have been moving around a lot more than usual: Not at all Thoughts that you would be b ashu off or of hurting yourself in some way: Not at all Total Score: 0 COVID-19 Screening Questions Have you had any new onset fever, chills, cough, congestion, sore throat, shortness of breath, muscle aches?: No SDOH Questions SDOH Questions In the past year have you or any family members you live with been unable to get any of the following when it was really needed? Check all that apply:: Decline to answer Examination Category Sub-Category Detail Notes General Examination GENERAL APPEARANCE: pleasant , well nourished, well developed, in no acute distress, calm and relaxed, overweight HEAD: atraumatic, normocep halic EYES: eomi, perrla, anicte cy, conjugate EARS: normal NOSE: septum intact NECK/THYROID: no jugular venous di stention, no carotid bruit, thyroid normal HEART: no clicks, gallops, murmurs, or rubs, regular rhythm, S1, S2 normal, no s3, or vascular bruits LUNGS: clear to auscultatio n ABDOMEN: bowel sounds normal, no ascites, no organomegaly, no mass, overweight NEUROLOGIC: alert and oriented, cranial nerves 2-12 grossly intact, deep tendon reflexes 2+ symmetrical, motor strength normal upper and lower extremities, sensory exam intact SKIN: no suspicious lesion s, anicteric PERIPHERAL PULSES: normal BREASTS: no masses palpable b ilaterally MUSCULOSKELETAL: extremities unremark able, no clubbing, cyanosis or edema LYMPH NODES: no enlarged lymph no ayaan,spleen normal RECTAL EXAM: not examined, Colono scopy in the near future PSYCH: alert, oriented ORAL CAVITY: normal, unremarkable
--- OUTSIDE RECORDS SUMMARY | 2024-12-22 07:33 | XMS_ITS | Patient Health Record ---
Author Organization [facility] Address [address] [place] [address] Care Team Providers Care Data Warehousing Manager Name Role Phone Bernabe Grimes MD Primary Care Provider Lukas Chan Jr Unavailable Reason For Referral Referring Provider First Name Bernabe Referring Provider Last Name Cornelio Referring Provider Speciality Oncology Referred Organization [facility] Referred Provider Lukas Roldan Jr Referred Address [address] [place] [address], [address],[place], [place],[address], Referred Provider Specialty Gastroentero logy Referral Priority Routine Plan Of Treatment Next Appt Details Provider Name:Lukas valderrama Jr, 02/27/2025 01:15:00 PM, [address] [place] [address], [address], [place], [address], Insurance Providers Payer Name Payer Address Payer Phone Subscriber Number Group Number Insured Name Patient Relationship to Insured Coverage Start Date Coverage End Date [facility] [employer] CLAIM[employer] [address] [place] [address] [id number] CHRISTEN VILLANUEVA Self - patient is the insured
--- OUTSIDE RECORDS SUMMARY | 2024-12-22 07:33 | XMS_ITS ---
Author Organization Bernabe Grimes III, MD Address [address] [place] [address] [address] [place] [place] [address] Care Team Providers Care Bi Lead Name Role Phone Bernabe Grimes Primary Care Provider [phone] Allergies Allergen (clinical drug ingredient) Drug/Non Drug Allergy documented on EMR Reaction Allergy Type Onset Date Status Penicillin Unknown Drug Allergy Active REASON FOR VISIT Follow up Medications Medication SIG (Take, Route, Frequency, Duration) Notes Start Date End Date Status Famotidine 20 MG 1 tablet as needed O rally Once a day Active Omeprazole 40 MG 1 capsule Orally Onc e a day 07/04/2024 Active Pantoprazole Sodium 40 MG 1 tablet Orally Once a day 07/04/2024 Active Social History Tobacco Use: Social History Observation Description Date Details (start date - stop date) Former Smoker NA - NA Sex Assigned At : Social History Observation Description Sex Assigned At Male Tobacco Use/Smoking Question Answer Notes Patient is a former smoker How long has it been since you last smoked? > 10 years Additional Findings: Tobacco Non-User Ex-cigaret te smoker Encounters Encounter Location Date Provider Diagnosis Bernabe Grimes III, MD [address] [place] [address] [place] [address] 09/05/2024 Bernabe Grimes GERD without esophagitis K21.9 Assessments Encounter Date Diagnosis (ICD Code) Assessment Notes Treatment Notes Treatment Clinical Notes 09/05/2024 GERD without esophagitis (ICD-10 - K21.9) He was recently seen in a local emergency room for chest pain which was diagnosed as GERD. He was on 20 mg of omeprazole daily and was placed on 40. This has not helped. I have prescribed him to result 40 mg once a day. He will also use a liquid antacid. Plan Of Treatment Medication Medication Name Sig Start Date Stop Date Notes Famotidine 20 MG 1 tablet as needed O rally Once a day Omeprazole 40 MG 1 capsule Orally Once a day 07/04/2024 Pantoprazole Sodium 40 MG 1 tablet Orally Once a day 07/04 Next Appt Details Provider Name:Bernabe Grimes, 12/20/2025 03:30:00 PM, [address] [place] [address] [address] [place] [address], [place], [address], Progress Notes * Wilber BROOKEOB:1980 ( 44 yo M)Acc No.[id number]:09/05/2024 Progress Notes Patient:?Michael BROOKE Provider:?Bernabe rGimes MD :1980???Age:43 Y???Sex:Male Dmitry e:09/05/2024 Address:[address] [place], [place] [id number] Subjective: * Chief Complaints: * ???1. Follow up. * HPI: ???COVID-19 Screening:?Questions?Have you had any new onset fever, chills, cough, congestion, sore throat, shortness of breath, muscle aches??No * ROS:?General/Constitutional:?pain?only normal aches and pains.?Chills?denies.?Fatigue?admits.?Fever?denies.?ENT:?Decreased hearing?denies.?Respiratory:?Cough?denies.?Cardiovascular:?Chest pain with exertion?denies.?Dyspnea on exertion?denies.?Shortness of breath?denies.?Gastrointestinal:?Constipation?denies.?Decreased appetite?denies.?Diarrhea?denies.?Heartburn?denies.?Nausea?denies.?Rectal bleeding?denies.?Vomiting?denies.?Hematology:?bruising?denies.?petechiae?denies.?Swollen glands?none have been noted.?Genitourinary:?Frequent urination?denies.?Musculoskeletal:?Muscle aches?denies.?Painful joints?denies.?Sciatica?denies.?Weakness?denies.?Skin:?Itching?denies.?Rash?denies.?Skin lesion(s)?denies.?Neurologic:?Difficulty speaking?denies.?Dizziness?denies.?Headache?denies.?Low back pain?denies.?Psychiatric:?Depressed mood?denies.? * Medical History:?Social phob ia, Allergic rhinitis, unspecified seasonality, unspecified trigger, overweight, BMI 29, Allergic to penicillin, rash, History of dental extractions, Former smoker, 2014 Suboxone recipient, GERD. * Surgical History:?dental ext ractions, 4 wisdom teeth removed , No history . * Hospitalization/Major Diagno stic Procedure:?No history . * Family History:?Father: dece ased 73 yrs, [...] who are healthy. He was born and [place], [place]. 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 He has some exposures to flannel 1. We'll and chemicals. * Medications:?Taking Omeprazo le 40 MG Capsule Delayed Release 1 capsule Orally Once a day , Notes: received notice from pharmacy medication not covered, Taking Pantoprazole Sodium 40 MG Tablet Delayed Release 1 tablet Orally Once a day , Notes: received notice from pharmacy medication not covered, Taking Famotidine 20 MG Tablet 1 tablet as needed Orally Once a day , Discontinued Omeprazole 20 MG Capsule Delayed Release 1 capsule 1/2 to 1 hour before morning meal Orally Once a day , Medication List reviewed and reconciled with the patient * Allergies:?Penicillin. Objective: * Vitals:? * Examination: ???General Examination: ?GENERAL APPEARANCE:?pleasant, well nourished, well developed, in no acute distress, calm and relaxed.?HEAD:?atraumatic, normocephalic.?EYES:?eomi, perrla, anicteric, conjugate.?EARS:?normal.?NOSE:?septum intact.?ORAL CAVITY:?normal, unremarkable.?NECK/THYROID:?no [...] Assessment: * Assessment: 1.?GERD without esophagitis - K21.9???Notes :He was recently seen in a local emergency room for chest pain which was diagnosed as GERD. He was on 20 mg of omeprazole daily and was placed on 40. This has not helped. I have prescribed him to result 40 mg once a day. He will also use a liquid antacid.??? Plan: * Treatment: 2.?Others? Continue Omeprazole Capsule Delayed Release, 40 MG, 1 capsule, Orally, Once a day, Notes: received notice from pharmacy medication not covered;?Continue Pantoprazole Sodium Tablet Delayed Release, 40 MG, 1 tablet, Orally, Once a day, Notes: received notice from pharmacy medication not covered.?? * Images: * The named appointment provid er may or may not be the originator of this progress note, and it is not deemed complete until electronically signed by the appointment provider. Sign off status: Pending * Provider:?Bernabe Grimes MD Date:?10/2024 Generated for Lucero arrington/Radha/Alexeyitting on:?12/22/2024 07:32 AM EDT History and Physical Notes * HPI (History of Present Illness) Category Sub-Category Detail Notes COVID-19 Screening Questions Have you had any new onset fever, chills, cough, congestion, sore throat, shortness of breath, muscle aches?: No Examination Category Sub-Category Detail Notes General Examination GENERAL APPEARANCE: pleasant , well nourished, well developed, in no acute distress, calm and relaxed HEAD: atraumatic, normocep halic EYES: eomi, perrla, [...]
[2024-12-22 09:51] LABS: MANUAL DIFF FLAG NO
[2024-12-22 09:57] LABS: Basophils Percent Auto 0.6 % (0-2); Eosinophils Absolute Auto 0.2 X10*3/uL (0.0-0.4); Eosinophils Percent Auto 4.6 % (0-4); Hematocrit 38.4 % (42.0-52.0); Hemoglobin 13.3 g/dl (14.0-18.0); Imm Gran Abs Auto 0.02 X10*3/uL (0.00-0.03); Imm Gran Pct Auto 0.4 % (0.0-0.4); Lymphocytes Absolute Auto 1.2 X10*3/uL (1.2-4.9); Mean Corpuscular HGB Conc 34.6 g/dl (31.0-36.0); Mean Corpuscular Hemoglobin 30.9 pg (27.0-33.0); Mean Corpuscular Volume 89.1 fL (80.0-98.0); Mean Platelet Volume 10.7 fL (9.4-12.4); Monocytes Absolute Auto 0.7 X10*3/uL (0.1-1.2); Monocytes Percent Auto 13.6 % (2-11); Neutrophils Absolute Auto 2.7 x10*3/uL (2.0-8.3); Neutrophils Percent Auto 56.8 % (45-73); Platelet Count 255 X10*3/uL (160-400); Red Blood Count 4.31 X10*6/uL (4.60-5.80); Red Cell Distribution Width 12.8 % (11.0-16.0); White Blood Count 4.8 X10*3/uL (4.8-10.8)
[2024-12-22 11:40] LABS: Alanine Aminotransferase 25 U/L (0-40); Albumin Level 4.6 g/dL (3.5-5.0); Alkaline Phosphatase 43 U/L (39-117); Anion Gap 11 (12-20); Aspartate Amino Transferase 23 U/L (5-37); Bilirubin Total 0.6 mg/dL (0.0-1.0); Blood Urea Nitrogen 21 mg/dL (9-16); Calcium 9.4 mg/dL (8.4-10.2); Carbon Dioxide 30 mmol/L (22-29); Chloride 103 mmol/L (96-108); Cholesterol 225 mg/dL (<200); Estimated Glomerular Filt Rate > 60; Glucose Fasting 100 mg/dL (60-99); HDL Cholesterol 70 mg/dL (>40); LDL Cholesterol Calculated 140 mg/dL (<100); Sodium 140 mmol/L (135-145); Total Protein 7.3 g/dL (6.5-8.0); Triglycerides 75 mg/dL (<150)
[2024-12-22 12:27] LABS: Prostate Specific Antigen 1.01 ng/mL (<0.05-4.0)
== END 2024-12-22 07:31 | disposition home or self-care (01) ==
LOC: HO.10HDL 07:30
PROVIDERS: Visit Provider Internal Medicine Medical Oncology
DX: Z00.00 Encounter for general adult medical examination without abnormal findings (principal); E78.5 Hyperlipidemia, unspecified; E66.3 Overweight; N40.0 Benign prostatic hyperplasia without lower urinary tract symptoms; Z12.5 Encounter for screening for malignant neoplasm of prostate
CPT/HCPCS: 36415; 80053; 80061; 84153; 85025